=== PATIENT | male | born 1955 | race Caucasian/White ===

== ENCOUNTER → 2020-09-26 06:38 | Outpatient (CLI) | payer OTHER, SELFPAY ==
[2020-09-28 18:38] LABS: SARS-CoV-2 RNA PCR Negative
== END ==
PROVIDERS: PCP Family Medicine; Visit Provider Family Medicine
DX: Z01.812 Encounter for preprocedural laboratory examination (principal); Z20.822 Contact with and (suspected) exposure to COVID-19
CPT/HCPCS: C9803; U0003; U0005

== ENCOUNTER 2023-05-25 12:23 | Emergency (ER) | payer OTHER, SELFPAY ==
[2023-05-25 12:28] VITALS: BP 174/103; PULSE 87; RESP 16; TEMP 36.8; O2SAT 100
[2023-05-25 15:09] VITALS: BP 157/104; PULSE 84; RESP 18; O2SAT 100
--- NOTE | 2023-05-25 17:39 | ED.EXTPRO ---
HPI - Extremity Problem General Chief complaint: Extremity Problem,Nontraumatic Stated complaint: left arm numbness x 2 days, previous DVT Time Seen by Provider: 05/25/23 16:44 History of Present Illness HPI Narrative: Patient is a 67-year-old male presenting with left arm tingling. Patient states that he noticed yesterday that he had tingling from his left elbow down to his left hand. States that it involves his ring finger and pinky finger. States that it sometimes feels like he is being zapped. Denies any weakness, swelling, redness. He states that it feels like he hit his funny bone and the sensation will not go away. Denies numbness or tingling anywhere else. No weakness anywhere else. No further complaints. Related Data Allergies Allergy/AdvReac Type Severity Reaction Status Date / Time codeine Allergy Unknown Unknown Verified 05/25/23 15:08 Review of Systems Review of Systems: All systems reviewed & are unremarkable except as noted in HPI and below PMFSH Past Medical History Medical History Colon polyp Depression (~10/2018) Dyslipidemia GERD without esophagitis History of Chris's palsy Left sided Hx pulmonary embolism (~2016) Recurrent thrombus Torn ACL Ulnar artery thrombus, left (~07/2017) Surgical History Surgical History History of repair of left rotator cuff 02/2020, 06/2020 - post surgical frozen shoulder History of right inguinal hernia repair 1965 Family History Family History Father Family history of coronary artery disease Mother Family history of malignant neoplasm of breast in first degree relative Other Family history of malignant neoplasm of testis Social History Social History Social History: Caffeine-coffee daily Smoking packs per day: 1 Smoking cigarettes per day: 20.0 Years smoked: 50 Smoking pack-years: 50.00 Smoking status: Current every day smoker Tobacco type: cigarettes Second hand tobacco smoke exposure: No Additional smoking assessment comments: consumes 1 pack of cigarettes daily Alcohol intake: current Drinks per week: 4 Alcohol use details: consumes 4 beers weekly Substance use: never Substance use type: does not use Lack of Transportation: No Lack of Food: Never True Current Housing: I Have Housing Concerned About Future Housing: No Difficulty Paying Gas/Electric Bills: No Difficulty Paying for Meds: No Currently Unemployed: No Education: Associate Degree Difficulty w/ Childcare or Family Care: No Living arrangements: with family Gender identity (if verbalized by the patient): Male Exam Narrative: GENERAL: Well-appearing, well-nourished, and in no acute distress. HEAD: Normocephalic, atraumatic. EYES: PERRLA and EOMI. ENT: Grossly unremarkable NECK: Supple. CHEST: No respiratory distress. HEART: Regular rate and rhythm EXTREMITIES: Normal range of motion. no sensory loss, full strength of LUE including wrist and hand; no swelling or redness or tenderness, radial pulses 2+ SKIN: Warm, dry, no rash. NEURO: No focal deficits. Alert and oriented x3. PSYCH: Normal mood and affect. Course Vital Signs Vital signs: Vital Signs Temperature 98.2 F 05/25/23 12:28 Pulse Rate 87 05/25/23 12:28 Respiratory Rate 16 05/25/23 12:28 Blood Pressure 174/103 H 05/25/23 12:28 Pulse Oximetry 100 05/25/23 12:28 Oxygen Delivery Room Air 05/25/23 12:28 Temperature 98.2 F 05/25/23 12:28 Pulse Rate 84 05/25/23 15:09 Respiratory Rate 18 05/25/23 15:09 Blood Pressure 157/104 H 05/25/23 15:09 Pulse Oximetry 100 05/25/23 15:09 Oxygen Delivery Room Air 05/25/23 12:28 MDM - Extremity (Nontraumatic) MDM Narrative Medical decision lina
== END 2023-05-25 18:03 | disposition home or self-care (01) ==
PROVIDERS: Emergency Provider Emergency Medicine; PCP Family Medicine
DX: G56.22 Lesion of ulnar nerve, left upper limb (principal); E78.5 Hyperlipidemia, unspecified; K21.9 Gastro-esophageal reflux disease without esophagitis; F17.210 Nicotine dependence, cigarettes, uncomplicated; Z86.711 Personal history of pulmonary embolism; Z86.010 Personal history of colon polyps
CPT/HCPCS: 99283